=== PATIENT | female | born 1985 | race Hispanic/Latino ===

== ENCOUNTER 2019-11-05 19:18 | Emergency (ER) | payer MEDICAID, OTHER ==
[2019-11-05 19:51] VITALS: O2SAT 98
[2019-11-05] MEDS: ASPIRIN TABLET 325 MG TAB PO ONE (19:53)
[2019-11-05] MEDS: IBUPROFEN 200 MG TAB PO ONE (19:53)
--- NOTE | 2019-11-05 20:27 | RAD ---
EXAM DESCRIPTION: XR Chest, 2 Views CLINICAL HISTORY: atypical chest pain TECHNIQUE: Two views of the chest are submitted. COMPARISON: None available for comparison FINDINGS: Heart: The cardiothoracic silhouette is within normal limits. Lungs: No focal consolidation. Mediastinum: Unremarkable Pleura: No appreciable effusion. No pneumothorax. Bones: Intact Upper abdomen: Unremarkable IMPRESSION: No acute disease. Electronically signed by: Raffi Browne MD 11/05/2019 8:25 PM GUEST SERVICES DIRECTOR
--- NOTE | 2019-11-05 21:00 | ED.PDOC ---
History of Present Illness - General Chief Complaint: Cardiovascular Problem Stated Complaint: elevated BP and chest pains Time Seen by Provider: 11/05/19 19:20 Source: patient Exam Limitations: no limitations - History of Present Illness Initial Comments: The patient is a 34-year-old female presenting to the emergency room secondary to intermittent left lateral upper chest pain for the last week or so. The patient has started back exercising over the last week. The pain does not really come on with exercise but seems to come on more at rest. It is not worse with lying back or sitting forward. It is not worse with taking a deep breath. It is largely reproducible with palpation of the lateral half of the pectoralis muscle on the left. No obvious trauma. No shortness of breath. No cardiac history. Pain is spasming in nature. No nausea vomiting or diarrhea. She has a history of hypertension but it is controlled with lisinopril. The patient is pleasant and cooperative. Timing/Duration: 1 week, intermittent Severity: moderate - When it is present Improving Factors: nothing Worsening Factors: nothing Associated Symptoms: chest pain Allergies/Adverse Reactions: Allergies NO KNOWN ALLERGY Allergy (Verified 11/05/19 19:37) Home Medications: Ambulatory Orders Aspirin (Buffered) 325 mg [Bufferin 325 mg] 1 ea PO QD #14 tab 11/05/19 Famotidine 20 mg PO DAILY #14 tab 11/05/19 Lisinopril 20 mg PO BID 11/05/19 Review of Systems - Review of Systems Constitutional: States: no symptoms reported EENTM: States: no symptoms reported Respiratory: States: no symptoms reported Cardiology: States: chest pain Gastrointestinal/Abdominal: States: no symptoms reported Genitourinary: States: no symptoms reported Musculoskeletal: States: see HPI Skin: States: no symptoms reported Neurological: States: no symptoms reported Endocrine: States: no symptoms reported All other Systems: No Change from Baseline Past Medical History (General) - Patient Medical History Hx Asthma: No Hx Hypertension: Yes Hx Diabetes: No Surgical History: appendectomy - Vaccination History Hx Tetanus, Diphtheria Vaccination: No Hx Influenza Vaccination: No - Social History Hx Alcohol Use: No Family Medical History - Family History Mother Hx Family Hypertension: Yes Physical Exam - Physical Exam General Appearance: Alert, Comfortable, No apparent distress Eye Exam: bilateral normal Ears, Nose, Throat: hearing grossly normal, normal ENT inspection Neck: full range of motion, supple Respiratory: lungs clear, normal breath sounds, no respiratory distress, no accessory muscle use, other - Pectoralis muscle tenderness as above Cardiovascular/Chest: normal peripheral pulses, regular rate, rhythm, no edema Peripheral Pulses: radial,right: 2+, radial,left: 2+, dorsalis pedis,right: 2+, dorsalis pedis,left: 2+ Gastrointestinal/Abdominal: non tender, soft Rectal Exam: deferred Back Exam: no CVA tenderness, no vertebral tenderness Extremity: normal range of motion, non-tender, normal inspection, no pedal edema, normal capillary refill 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 I believe that this is most likely due to pectoralis muscle irritation on that side possibly related to a new exercise routine. There is no evidence of myocardial infarction on lab work or EKG. Blood work, EKG and x-ray are all reassuring. For the next 2 weeks I want her to take a full dose aspirin each morning with breakfast and with a dose of [id number] Pepcid. This will help reduce inflammation and also provide some potential cardiac protection, though her risk is very low. I want her to follow-up with primary care doctor to discuss getting set up with an exercise tolerance test, given that the patient's risk factors are minimal and the exam is more consistent with musculoskeletal discomfort. ER warnings were given for any acute worsening. Stretching exercises for the pectoralis muscle were given. sheri walker [id number] - Results/Orders Results/Orders: Chest x-ray shows no acute pathology. EKG shows normal sinus rhythm at 82 bpm. Mild right axis deviation. Normal R wave progression. No definitive ST segment or T wave changes indicative of acute ischemia. Laboratory Tests 11/05/19 11/05/19 11/05/19 20:09 20:09 20:09 WBC 9.2 RBC 4.35 Hgb 12.8 Hct 37.5 MCV 86.4 MCH 29.5 MCHC 34.1 RDW 12.6 Plt Count 285 MPV 9.0 Absolute Neuts (auto) 6.40 Absolute Lymphs (auto) 2.20 Absolute Monos (auto) 0.50 Absolute Eos (auto) 0.10 Absolute Basos (auto) 0.00 Neutrophils % 69.3 Lymphocytes % 24.0 Monocytes % 5.8 Eosinophils % 0.6 L Basophils % 0.3 PT 10.6 INR 1.07 PTT (SP) 23.6 Sodium 138 Potassium 3.3 L Chloride 102 Carbon Dioxide 30 Anion Gap 9.3 L BUN 14 Creatinine 0.47 L BUN/Creatinine Ratio 29.8 H Random Glucose 110 H Serum Osmolality 276.8 Calcium 9.3 Magnesium 2.2 Total Bilirubin 0.7 AST 17 ALT 18 Alkaline Phosphatase 57 Creatine Kinase 132 CK-MB (CK-2) 2.3 Troponin I < 0.02 B-Natriuretic Peptide < 5.0 Serum Total Protein 8.0 Albumin 4.9 Globulin 3.1 Albumin/Globulin Ratio 1.6 TSH 1.91 Serum HCG, Qual 11/05/19 20:09 WBC RBC Hgb Hct MCV MCH MCHC RDW Plt Count MPV Absolute Neuts (auto) Absolute Lymphs (auto) Absolute Monos (auto) Absolute Eos (auto) Absolute Basos (auto) Neutrophils % Lymphocytes % Monocytes % Eosinophils % Basophils % PT INR PTT (SP) Sodium Potassium Chloride Carbon Dioxide Anion Gap BUN Creatinine BUN/Creatinine Ratio Random Glucose Serum Osmolality Calcium Magnesium Total Bilirubin AST ALT Alkaline Phosphatase Creatine Kinase CK-MB (CK-2) Troponin I B-Natriuretic Peptide Serum Total Protein Albumin Globulin Albumin/Globulin Ratio TSH Serum HCG, Qual Negative Departure - Departure Clinical Impression: Atypical chest pain Disposition: Discharge to Home or Self Care Condition: Fair Departure Forms: ED Discharge - Pt. Copy, Patient Portal Self Enrollment Instructions: DI for Chest Pain Diet: bland diet Activity: increase activity as tolerated Prescriptions: Aspirin (Buffered) 325 mg [Bufferin 325 mg] 1 ea PO QD #14 tab Famotidine 20 mg PO DAILY #14 tab Home Medications: Ambulatory Orders Aspirin (Buffered) 325 mg [Bufferin 325 mg] 1 ea PO QD #14 tab 11/05/19 Famotidine 20 mg PO DAILY #14 tab 11/05/19 Lisinopril 20 mg PO BID 11/05/19 Additional Instructions: The patient is a 34-year-old female presenting to the emergency room secondary to chest pain intermittent over the last week. I believe that this is most likely due to pectoralis muscle irritation on that side possibly related to a new exercise routine. There is no evidence of myocardial infarction on lab work or EKG. Blood work, EKG and x-ray are all reassuring. For the next 2 weeks I want her to take a full dose aspirin each morning with breakfast and with a dose of [id number] Pepcid. This will help reduce inflammation and also provide some potential cardiac protection, though her risk is very low. I want her to follow-up with primary care doctor to discuss getting set up with an exercise tolerance test, given that the patient's risk factors are minimal and the exam is more consistent with musculoskeletal discomfort. ER warnings were given for any acute worsening. Stretching exercises for the pectoralis muscle were given. Print Language: Mongolian
[2019-11-05] MEDS: POTASSIUM CHLORIDE ELIXIR 20 MEQ/15 ML UD PO ONE (21:11)
[2019-11-05 21:17] VITALS: BP 125/88; TEMP 98
== END 2019-11-05 21:17 | disposition home or self-care (01) ==
LOC: ER 19:18
DX: R07.89 Other chest pain (principal); I10 Essential (primary) hypertension; Z79.899 Other long term (current) drug therapy